=== PATIENT | female | born 1940 | race Caucasian/White ===

== ENCOUNTER 2016-04-02 12:33 | Outpatient (CLI) ==
[2015-12-17 20:20] VITALS: BMI 24.6
[2016-04-02 13:37] LABS: HEMATOCRIT 34.9 % (37.0-47.0); HEMOGLOBIN 11.8 g/dl (12.0-16.0); MEAN CORPUSCULAR HEMOGLOBIN 32.8 pg (27.0-31.0); MEAN CORPUSCULAR HGB CONC 33.8 (31.8-35.4); MEAN CORPUSCULAR VOLUME 96.9 fl (81.0-99.0); RED BLOOD COUNT 3.6 10^6/ul (4.20-5.40); WHITE BLOOD COUNT 3.34 K/ul (4.6-10.2)
[2016-04-02 14:20] LABS: ALBUMIN 3.9 g/dL (3.4-5.0); ALBUMIN/GLOBULIN RATIO 2.05; ANION GAP 15.9; BILIRUBIN,TOTAL 1.06 mg/dL (0.00-1.20); BUN/CREATININE RATIO 12.94; CALCIUM 10.8 mg/dL (8.2-10.2); CREATININE 0.85 mg/dL (0.60-1.30); POTASSIUM 3.9 mmol/L (3.5-5.10); TOTAL PROTEIN 5.8 g/dL (5.8-8.1)
[2016-04-04 09:00] LABS: VITAMIN D25 17.3 ng/mL (30.0-100.0)
[2016-04-04 13:11] LABS: C-REACTIVE PROTEIN < 0.3 mg/L (0.0-4.9)
== END 2016-04-02 12:34 | disposition home or self-care (01) ==
LOC: LAB 12:33
PROVIDERS: ATTEND Internal Medicine Endocrinology, Diabetes & Metabolism
DX: E21.3 Hyperparathyroidism, unspecified (principal); E03.8 Other specified hypothyroidism; E55.9 Vitamin D deficiency, unspecified; M05.79 Rheumatoid arthritis with rheumatoid factor of multiple sites without organ or systems involvement
CPT/HCPCS: 36415; 80053; 82306; 83970; 84443; 85025; 85027; 86140

== ENCOUNTER 2016-05-08 18:16 | Emergency (ER) ==
[2016-05-08 18:27] VITALS: BP 174/78; TEMP 98.5; BMI 21.1
[2016-05-08] MEDS ORDERED: XOPENEX 1.25 MG NEB STA (18:27)
[2016-05-08 18:49] LABS: ABG PH 7.554 (7.35-7.45)
[2016-05-08 18:50] LABS: ABG BASE EXCESS -2 (-2.0-2.0); ABG HCO3 20.3 (22.0-26.0); ABG TCO2 21 (22.0-28.0)
[2016-05-08 18:54] LABS: FLU INTERNAL QC INTERNAL QC VALID; RAPID FLU A NEGATIVE (NEGATIVE); RAPID FLU B NEGATIVE (NEGATIVE)
[2016-05-08 18:57] LABS: BASOPHILS # (AUTO) 0.1 K/uL (0-0.2); BASOPHILS % (AUTO) 1.8 % (0.0-3.0); EOSINOPHILS # (AUTO) 0.9 K/ul (0.0-0.7); EOSINOPHILS % (AUTO) 15.7 % (0.0-7.0); HEMATOCRIT 35.7 % (37.0-47.0); HEMOGLOBIN 12.5 g/dl (12.0-16.0); IMMATURE GRANULOCYTE % (AUTO) 0.2 % (0.0-5.0); LYMPHOCYTES # (AUTO) 3.3 K/uL (0.60-3.4); LYMPHOCYTES % (AUTO) 54.5 (10.0-50.0); MEAN CORPUSCULAR HEMOGLOBIN 33.3 pg (27.0-31.0); MEAN CORPUSCULAR VOLUME 95.2 fl (81.0-99.0); MONOCYTES # (AUTO) 0.6 K/uL (0.4-2.0); MONOCYTES % (AUTO) 9.8 (0-10); NEUTROPHILS # (AUTO) 1.1 K/ul (2.0-6.9); PLATELET COUNT 115 10^3/uL (140-440); RED BLOOD COUNT 3.75 10^6/ul (4.20-5.40)
--- NOTE | 2016-05-08 19:16 | CT ---
EXAM: CT chest without intravenous contrast 05/08/2016. Sagittal and coronal reformatted images ob tained HISTORY: Cough and dyspnea COMPARISON: 10/09/2012 FINDINGS: The heart size appears within normal limits. No pericardial effusion. Right chest port appears well positioned. Emphysematous changes. Spiculated soft tissue density at the right pulmonary apex on image 10 measu res 1.2 x 2.2 cm diameter. This could represent scarring. Neoplasm not excluded. No prior CT imag ing for comparison. Ground-glass infiltrate extends throughout the inferior aspect of both lungs. This may relate to at electasis, pulmonary edema and/or pneumonitis. Small left pleural effusion. Severe atherosclerotic vascular disease. Chronic degenerative disc disease. IMPRESSION: 1. Emphysema. 2. Spiculated soft tissue mass of the right pulmonary apex could represent scarring. Neoplasm is n ot excluded. No prior CT imaging for comparison. Follow-up would be of benefit. 3. Diffuse ground-glass infiltrates throughout the lower aspect of both lungs most compatible with atelectasis, pneumonitis and/or edema. 4. Left pleural effusion. Additional findings as above.
[2016-05-08] MEDS ORDERED: LASIX IVP STA (19:19)
--- NOTE | 2016-05-08 19:23 | ED.PDOC ---
General ED Provider: Dr. SAUNDRA RINCON-ER Chief Complaint: Shortness of Air Stated Complaint: im sob Time Seen by Physician: 18:20 Mode of Arrival: Walk-In Information Source: Patient Exam Limitations: No limitations Primary Care Provider: SAUNDRA RINCON Nursing and Triage Documentation Reviewed and Agree: Yes Respiratory Complaint Exam - Shortness of Air Complaint/Exam Onset/Duration: several days Symptoms Are: Still present Timing: Intermittent Initial Severity: Mild Current Severity: Moderate Character: Reports: Dyspnea at rest, Dyspnea on exertion Aggravating: Reports: None Alleviating: Reports: None Associated Signs and Symptoms: Reports: Cough, Fever, Edema, Labored breathing. Denies: Wheezing, Chest pain with cough, Chest pain, Chills, Diaphoresis, Nasal congestion, Dizziness, Calf pain, Calf swelling, Rapid breathing, Decreased intake Related History: Reports: Similar episode History of Healthcare-Acquired Pneumonia: No Cardiac Risk Factors: Reports: CAD, Hypertension Pseudomonas Risk Factors: Reports: None Tuberculosis Risk Factors: Reports: None Home Oxygen Use: No Recent Stress Test: No Recent Echo/LV Function: No Respiratory Distress: None Stridor Present: No Tracheal Deviation: No Subcutaneous Emphysema: No Accessory Muscle Use: No Retractions: Not Present Diminished Breath Sounds: No Prolonged Expiratory Phase: No Unable to Speak Full Sentences: No Fatigue: Yes Leg Swelling: No Phillip's Sign Present: No Grunting Respirations: No Kussmaul Respirations: No Differential Diagnoses: CHF, Pulmonary Edema, MA, Pneumonia Quality Indicator For Non-Traumatic Chest Pain/Syncope: EKG Performed Review of Systems - Review Of Systems Constitutional: Reports: Fever Eyes: Reports: No symptoms Ears, Nose, Mouth, Throat: Reports: No symptoms Respiratory: Reports: Cough, Short of air Cardiac: Reports: No symptoms GI: Reports: No symptoms : Reports: No symptoms Musculoskeletal: Reports: No symptoms Skin: Reports: No symptoms Neurological: Reports: No symptoms Endocrine: Reports: No symptoms Hematologic/Lymphatic: Reports: No symptoms All Other Systems: Reviewed and Negative Past Medical History - Past Medical History Endocrine: Reports: Hypothyroid, Dyslipidemia Cardiovascular: Reports: Hypertension Respiratory: Reports: None Hematological: Reports: None Gastrointestinal: Reports: None Genitourinary: Reports: None Neuro/Psych: Reports: None Musculoskeletal: Reports: None Cancer: Reports: None Last Menstrual Period: none - Surgical History General Surgical History: Reports: Gastric Bypass - Family History Family History: Reports: Unknown - Social History Smoking Status: Never smoker Hx Substance Use: No Alcohol Screening: Occasionally Lives: With family Physical Exam - Physical Exam Appearance: Well-appearing, No pain distress, Well-nourished Eyes: ADI, EOMI, Conjunctiva clear ENT: Ears normal, Nose normal, Oropharynx normal Neck: Supple Respiratory: Airway patent, Breath sounds equal, Crackles Cardiovascular: RRR, Pulses normal, No rub, No murmur GI/: Soft, Nontender, No masses, Bowel sounds normal, No Organomegaly Musculoskeletal: Normal strength, ROM intact, No edema, No calf tenderness Skin: Warm, Dry, Normal color Neurological: Sensation intact, Motor intact, Reflexes intact, Cranial nerves intact, Alert, Oriented Psychiatric: Affect appropriate, Mood appropriate Interpretation - Radiology Interpretation Radiology Interpretation By: Radiologist Radiology Results: Positive Exam Interpreted: CT Scan ("pulmonary edema and pleural effusion") - EKG Interpretation Time of EKG #1: 19:23 Rate: Normal Rhythm: Other Ectopy: None [place]: NL ST Segment: Normal Interpretation: nsr Critical Care Note - Critical Care Note Total Time (mins): 0 Course - Course Hematology/Chemistry: 05/08/16 18:45 05/08/16 18:45 Orders, Labs, Meds: Lab Review 05/08/16 05/08/16 05/08/16 18:25 18:30 18:45 WBC 6.00 RBC 3.75 L Hgb 12.5 Hct 35.7 L MCV 95.2 MCH 33.3 H MCHC 35.0 RDW Coeff of [place] 14.1 Plt Count 115 L Immature Gran % (Auto) 0.2 Neut % (Auto) 18.0 Lymph % (Auto) 54.5 H Foard % (Auto) 9.8 Eos % (Auto) 15.7 H Baso % (Auto) 1.8 Immature Gran # (Auto) 0.0 Neut # 1.1 L Lymph # 3.3 Foard # 0.6 Eos # 0.9 H Baso # 0.1 D-Dimer 0.91 Puncture Site Rb O2 Saturation 93.0 L ABG pH 7.554 H* ABG pCO2 23.0 L ABG pO2 57.0 L* ABG HCO3 20.3 L ABG Total CO2 21 L ABG Base Excess -2 Omid Test + FiO2 % 21.0 Sodium 143 Potassium 3.5 Chloride 110 H Carbon Dioxide 23 Anion Gap 13.5 BUN 14 Creatinine 0.97 Estimated GFR (MDRD) 56.00 BUN/Creatinine Ratio 14.43 Glucose 83 Calcium 11.4 H Total Bilirubin 0.69 AST 68 H ALT 39 Alkaline Phosphatase 57 Total Creatine Kinase 41 Troponin I < 0.0100 B-Natriuretic Peptide 304 H Total Protein 5.6 L Albumin 3.6 Globulin 2.0 Albumin/Globulin Ratio 1.80 Influenza A (Rapid) Negative Influenza B (Rapid) Negative Orders Category Date Time Status ABG DRAW REQUEST Stat CARDIO 05/08/16 18:26 Completed EKG-(ED ONLY) Stat CARDIO 05/08/16 18:26 Completed NEBULIZER TREATMENT Stat CARDIO 05/08/16 18:27 Completed ABG Stat LAB 05/08/16 18:25 Completed BLOOD CULTURE Stat LAB 05/08/16 18:45 Received BNP [B-TYPE NATRIURETIC PEPTIDE] Stat LAB 05/08/16 18:45 Completed CBC W/ AUTO DIFF Stat LAB 05/08/16 18:45 Completed COMPREHENSIVE METABOLIC PANEL Stat LAB 05/08/16 18:45 Completed CREATINE KINASE Stat LAB 05/08/16 18:45 Completed D-DIMER Stat LAB 05/08/16 18:45 Completed RAPID FLU A/B Stat LAB 05/08/16 18:30 Completed TROPONIN I Stat LAB 05/08/16 18:45 Completed Ceftriaxone Sodium [Rocephin] 1 gm MEDS 05/08/16 19:31 Active 0.9 % Sodium Chloride [Sodium Chloride] 100 ml IV ONCE Furosemide [Lasix] MEDS 05/08/16 19:19 Discontinued 20 mg IVP ONCE STA Levalbuterol HCl [Xopenex 1.25 mg] MEDS 05/08/16 18:27 Discontinued 1 vial NEB ONCE STA CT CHEST W/O CONTRAST Stat RADS 05/08/16 18:27 Completed Medications Generic Name Dose Route Start Last Admin Trade Name Freq PRN Reason Stop Dose Admin Ceftriaxone Sodium 1 gm/ 100 mls @ 100 mls/hr 05/08/16 19:31 Sodium Chloride IV 05/08/16 20:30 ONCE STA Discontinued Medications Generic Name Dose Route Start Last Admin Trade Name Freq PRN Reason Stop Dose Admin Furosemide 20 mg 05/08/16 19:19 Lasix IVP 05/08/16 19:20 ONCE STA Levalbuterol HCl 1 vial 05/08/16 18:27 05/08/16 18:58 Xopenex 1.25 Mg NEB 05/08/16 18:28 1 vial ONCE STA Administration Vital Signs: Temp Pulse Resp BP Pulse Ox 05/08/16 18:17 98.5 F 85 20 174/78 H 91 L Departure - Departure Time of Disposition: 19:33 Disposition: TSF SHORT-TRM HOSP Discharge Problem: Pulmonary edema Qualifiers: Chronicity: acute Qualifier Code: (J81.0) Acute pulmonary edema Pneumonia Qualifiers: Pneumonia type: due to unspecified organism Laterality: unspecified laterality Lung location: unspecified part of lung Qualifier Code: (J18.9) Pneumonia, unspecified organism Instructions: Pulmonary Edema (ED) Condition: Stable Pt referred to PMD for follow-up: Yes Allergies/Adverse Reactions: Allergies No Known Allergies Allergy (Verified 05/08/16 18:26) Home Medications: Ambulatory Orders Aspirin [Aspirin EC] 81 mg PO DAILY 03/09/15 Atorvastatin Calcium 10 mg PO DAILY 03/09/15 Clonidine HCl [Catapres] 0.1 mg PO BID 03/09/15 Losartan Potassium [Cozaar] 50 mg PO BID 03/09/15 Methotrexate Sodium [Methotrexate] 2.5 mg PO DIRECTED 03/09/15 Nitroglycerin [Nitrostat] 1 tab SL DIRECTED PRN 03/09/15 Sucralfate Susp [Carafate] 1 gm PO QID 03/09/15 Alendronate Sodium 70 mg PO WEEKLY 12/17/15 Ergocalciferol (Vitamin D2) [Vitamin D2] 400 unit PO WEEKLY 12/17/15 Metoprolol Tartrate [Lopressor] 25 mg PO BID 12/17/15 Nystatin [Nystop Powder] 1 applic TP DAILY 12/17/15 Pantoprazole Sodium [Protonix] 40 mg PO DAILY 12/17/15 Tocilizumab [Actemra] 200 mg IV DIRECTED 12/17/15 Disposition Discussed With: Patient, Family
[2016-05-08 19:28] LABS: ALANINE AMINOTRANSFERASE 39 U/L (12-78); ALBUMIN 3.6 g/dL (3.4-5.0); ALKALINE PHOSPHATASE 57 U/L (53-141); ANION GAP 13.5; ASPARTATE AMINO TRANSFERASE 68 U/L (15-37); BILIRUBIN,TOTAL 0.69 mg/dL (0.00-1.20); BLOOD UREA NITROGEN 14 mg/dL (7-18); BUN/CREATININE RATIO 14.43; CALCIUM 11.4 mg/dL (8.2-10.2); CARBON DIOXIDE 23 mmol/L (23-31); CHLORIDE 110 mmol/L (98-107); CREATINE KINASE 41 U/L; CREATININE 0.97 mg/dL (0.60-1.30); GLUCOSE 83 mg/dL (82-115); POTASSIUM 3.5 mmol/L (3.5-5.10); SODIUM 143 mmol/L (136-145); TOTAL PROTEIN 5.6 g/dL (5.8-8.1)
[2016-05-08] MEDS ORDERED: ROCEPHIN 1 GM in SODIUM CHLORIDE 100 ML IV STA (19:31)
[2016-05-08] MEDS ORDERED: ROCEPHIN ONE (19:56)
== END 2016-05-08 20:20 | disposition short-term general hospital (02) ==
LOC: ED 18:16
DX: J81.0 Acute pulmonary edema (principal); J18.9 Pneumonia, unspecified organism; I10 Essential (primary) hypertension; I25.10 Atherosclerotic heart disease of native coronary artery without angina pectoris; E03.9 Hypothyroidism, unspecified; E78.5 Hyperlipidemia, unspecified; Z79.899 Other long term (current) drug therapy; Z98.84 Bariatric surgery status
CPT/HCPCS: 36415; 80053; 82550; 82803; 83880; 84484; 85025; 85379; 87040; 87804; 93005; 93010; 94640; 96365; 96375; 99285

== ENCOUNTER 2016-05-08 20:24 | Outpatient (CLI) ==
[2016-05-08 18:27] VITALS: BMI 21.1
== END 2016-05-08 20:25 ==
LOC: AMBL 20:24
PROVIDERS: ATTEND Family Medicine
DX: J81.1 Chronic pulmonary edema (principal); R06.9 Unspecified abnormalities of breathing

== ENCOUNTER 2016-06-08 11:43 | Outpatient (CLI) ==
[2016-06-08 12:19] LABS: EOSINOPHILS # (AUTO) 0.2 K/ul (0.0-0.7); EOSINOPHILS % (AUTO) 7.9 % (0.0-7.0); HEMATOCRIT 29.5 % (37.0-47.0); HEMOGLOBIN 10.1 g/dl (12.0-16.0); LYMPHOCYTES # (AUTO) 1.9 K/uL (0.60-3.4); LYMPHOCYTES % (AUTO) 62.8 (10.0-50.0); MEAN CORPUSCULAR HEMOGLOBIN 33.8 pg (27.0-31.0); MEAN CORPUSCULAR HGB CONC 34.2 (31.8-35.4); MEAN CORPUSCULAR VOLUME 98.7 fl (81.0-99.0); MONOCYTES # (AUTO) 0.2 K/uL (0.4-2.0); MONOCYTES % (AUTO) 6.6 (0-10); NEUTROPHILS # (AUTO) 0.7 K/ul (2.0-6.9); NEUTROPHILS % (AUTO) 21.7; PLATELET COUNT 78 10^3/uL (140-440); RED BLOOD COUNT 2.99 10^6/ul (4.20-5.40); WHITE BLOOD COUNT 3.04 K/ul (4.6-10.2)
[2016-06-08 12:35] LABS: ALBUMIN 3.5 g/dL (3.4-5.0); ALBUMIN/GLOBULIN RATIO 1.52; ANION GAP 10.8; BILIRUBIN,TOTAL 0.81 mg/dL (0.00-1.20); BUN/CREATININE RATIO 13.33; CALCIUM 10.8 mg/dL (8.2-10.2); CREATININE 0.9 mg/dL (0.60-1.30); POTASSIUM 3.8 mmol/L (3.5-5.10); TOTAL PROTEIN 5.8 g/dL (5.8-8.1)
== END 2016-06-08 11:44 | disposition home or self-care (01) ==
LOC: LAB 11:43
PROVIDERS: ATTEND Internal Medicine Rheumatology
DX: M05.79 Rheumatoid arthritis with rheumatoid factor of multiple sites without organ or systems involvement (principal)
CPT/HCPCS: 36415; 80053; 85025; 86140

== ENCOUNTER 2016-08-29 11:48 | Outpatient (CLI) ==
[2016-08-29 12:11] LABS: HEMATOCRIT 32.8 % (37.0-47.0); HEMOGLOBIN 11.2 g/dl (12.0-16.0); MEAN CORPUSCULAR HEMOGLOBIN 33.1 pg (27.0-31.0); MEAN CORPUSCULAR HGB CONC 34.1 (31.8-35.4); RED BLOOD COUNT 3.38 10^6/ul (4.20-5.40); WHITE BLOOD COUNT 2.85 K/ul (4.6-10.2)
[2016-08-29 12:30] LABS: ALBUMIN 3.4 g/dL (3.4-5.0); CREATININE 0.83 mg/dL (0.60-1.30)
== END 2016-08-29 11:49 | disposition home or self-care (01) ==
LOC: LAB 11:48
PROVIDERS: ATTEND Internal Medicine Rheumatology
DX: M05.79 Rheumatoid arthritis with rheumatoid factor of multiple sites without organ or systems involvement (principal)
CPT/HCPCS: 36415; 82040; 82565; 84460; 85027; 86140

== ENCOUNTER 2016-09-30 11:55 | Outpatient (CLI) ==
[2016-09-30 12:59] LABS: BASOPHILS # (AUTO) 0.1 K/uL (0-0.2); EOSINOPHILS # (AUTO) 0.2 K/ul (0.0-0.7); EOSINOPHILS % (AUTO) 3.7 % (0.0-7.0); HEMATOCRIT 34.3 % (37.0-47.0); HEMOGLOBIN 11.6 g/dl (12.0-16.0); IMMATURE GRANULOCYTE % (AUTO) 0.2 % (0.0-5.0); LYMPHOCYTES # (AUTO) 2.1 K/uL (0.60-3.4); MEAN CORPUSCULAR HEMOGLOBIN 33.2 pg (27.0-31.0); MEAN CORPUSCULAR HGB CONC 33.8 (31.8-35.4); MEAN CORPUSCULAR VOLUME 98.3 fl (81.0-99.0); MONOCYTES # (AUTO) 0.3 K/uL (0.4-2.0); MONOCYTES % (AUTO) 6.3 (0-10); NEUTROPHILS # (AUTO) 1.6 K/ul (2.0-6.9); NEUTROPHILS % (AUTO) 37.8; PLATELET COUNT 90 10^3/uL (140-440); RED BLOOD COUNT 3.49 10^6/ul (4.20-5.40)
[2016-09-30 13:46] LABS: ALBUMIN 3.7 g/dL (3.4-5.0); CALCIUM 11.2 mg/dL (8.2-10.2); MAGNESIUM 1.7 mg/dL (1.7-2.2); POTASSIUM 4.3 mmol/L (3.5-5.10); TOTAL PROTEIN 6.3 g/dL (5.8-8.1)
[2016-09-30 13:47] LABS: ALBUMIN/GLOBULIN RATIO 1.42; ANION GAP 12.3; BILIRUBIN,TOTAL 0.47 mg/dL (0.00-1.20); BUN/CREATININE RATIO 17.07; CREATININE 0.82 mg/dL (0.60-1.30); PHOSPHORUS 1.9 mg/dL (2.8-4.1)
[2016-10-01 19:46] LABS: FREE KAPPA LIGHT CHAINS 17.8 mg/L (3.3-19.4); FREE LAMBDA LIGHT CHAINS 13.9 mg/L (5.7-26.3)
[2016-10-02 11:06] LABS: FREE KAPPA/LAMBDA RATI 1.28 (0.26-1.65)
== END 2016-09-30 11:56 | disposition home or self-care (01) ==
LOC: LAB 11:55
PROVIDERS: ATTEND Internal Medicine Rheumatology
DX: M05.79 Rheumatoid arthritis with rheumatoid factor of multiple sites without organ or systems involvement (principal); R79.9 Abnormal finding of blood chemistry, unspecified; R09.89 Other specified symptoms and signs involving the circulatory and respiratory systems; R53.83 Other fatigue; E83.52 Hypercalcemia; R49.8 Other voice and resonance disorders
CPT/HCPCS: 36415; 80053; 82306; 82652; 83735; 83970; 84100; 84439; 84443; 84446; 85025; 86320

== ENCOUNTER 2016-11-03 09:06 | Outpatient (CLI) ==
[2016-11-03 10:20] LABS: ALBUMIN 3.6 g/dL (3.4-5.0); ALBUMIN/GLOBULIN RATIO 1.5; ANION GAP 12.2; BILIRUBIN,TOTAL 0.68 mg/dL (0.00-1.20); BUN/CREATININE RATIO 20.45; CALCIUM 10.9 mg/dL (8.2-10.2); CREATININE 0.88 mg/dL (0.60-1.30); POTASSIUM 4.2 mmol/L (3.5-5.10)
[2016-11-04 08:14] LABS: REF CREATININE 0.77 mg/dL (0.57-1.00)
== END 2016-11-03 09:07 | disposition home or self-care (01) ==
LOC: LAB 09:06
PROVIDERS: ATTEND Internal Medicine Endocrinology, Diabetes & Metabolism
DX: R09.89 Other specified symptoms and signs involving the circulatory and respiratory systems (principal); R53.83 Other fatigue; R49.8 Other voice and resonance disorders; E83.52 Hypercalcemia
CPT/HCPCS: 36415; 80053; 81050; 82340; 82575

== ENCOUNTER 2016-11-04 11:58 | Outpatient (CLI) | END 2016-11-04 11:59 | disposition home or self-care (01) | LOC: LAB 11:58 | PROVIDERS: ATTEND Internal Medicine Endocrinology, Diabetes & Metabolism | DX: R09.89 Other specified symptoms and signs involving the circulatory and respiratory systems (principal); R53.83 Other fatigue; R49.8 Other voice and resonance disorders; E83.52 Hypercalcemia ==

== ENCOUNTER 2017-01-31 12:43 | Outpatient (CLI) ==
--- NOTE | 2017-01-31 13:58 | DEXA ---
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 COMPARISON: Density evaluation 01/12/2012 TECHNIQUE: Digital images of the thoracolumbar spine, forearm and hips were provided and calculation of bone density was obtained. FINDINGS: Digital images demonstrate no compression deformities of the thoracolumbar spine. DEXA scan of the lumbar spine is of good quality. The total BMD equals 0.882 grams per square centimeter. T-score is - 2.5 and Z-score of - 0.3 DEXA of the hips was performed and of good quality. Total bone marrow density of 0.701 grams per square centimeter. T score is - 2.4 and Z-score of 0.4. Bilateral femoral neck to T-scores are - 2.8 and - 2.9 Right forearm was performed and of good quality. Total bone density of 0.319 grams per centimeter squared. The radius totally T-score is - 5.5 with a Z-score of - 3.2 IMPRESSION: Bone density of the hips, forearm and lumbar spine demonstrate bilateral femoral neck os teoporosis and osteopenia of the lumbar spine and osteoporosis of the right forearm by WHO criteria. FRAX calculation tool demonstrates 10-year major osteoporotic fracture risk of 23.8% and hip fracture risk of 10.2% T score greater than -1 is normal T score -1 to -2.5 is osteopenia T score less than - 2.5 is osteoporosis
== END 2017-01-31 12:44 | disposition home or self-care (01) ==
LOC: RAD 12:43
PROVIDERS: ATTEND Internal Medicine Endocrinology, Diabetes & Metabolism
DX: M81.8 Other osteoporosis without current pathological fracture (principal); E21.3 Hyperparathyroidism, unspecified; E83.52 Hypercalcemia; R53.83 Other fatigue; R09.89 Other specified symptoms and signs involving the circulatory and respiratory systems; R49.8 Other voice and resonance disorders

== ENCOUNTER 2017-04-24 11:02 | Outpatient (CLI) | END 2017-04-24 11:03 | disposition home or self-care (01) | LOC: LAB 11:02 | PROVIDERS: ATTEND Internal Medicine Endocrinology, Diabetes & Metabolism | DX: R09.89 Other specified symptoms and signs involving the circulatory and respiratory systems (principal); E83.52 Hypercalcemia; R53.83 Other fatigue; R49.8 Other voice and resonance disorders | CPT/HCPCS: 36415; 80053; 81050; 82306; 83970 ==

== ENCOUNTER 2017-05-19 11:01 | Outpatient (CLI) ==
[2017-05-19] MEDS ORDERED: HEPARIN 500 UNIT/5 ML (PORT ACCESS TRAY ONLY) IVF ONE (14:50)
== END 2017-05-19 11:02 | disposition home or self-care (01) ==
LOC: LAB 11:01
PROVIDERS: ATTEND Internal Medicine Endocrinology, Diabetes & Metabolism
DX: R09.89 Other specified symptoms and signs involving the circulatory and respiratory systems (principal); R53.83 Other fatigue; R49.8 Other voice and resonance disorders; E83.52 Hypercalcemia
CPT/HCPCS: 36415; 36591; 82652; 84439; 84443

== ENCOUNTER 2017-10-09 12:41 | Outpatient (CLI) | END 2017-10-09 12:42 | disposition home or self-care (01) | LOC: LAB 12:41 | PROVIDERS: ATTEND Internal Medicine Endocrinology, Diabetes & Metabolism | DX: R09.89 Other specified symptoms and signs involving the circulatory and respiratory systems (principal); R53.83 Other fatigue; E83.52 Hypercalcemia; R49.8 Other voice and resonance disorders | CPT/HCPCS: 36591; 80053; 82306; 84443 ==

== ENCOUNTER 2017-10-24 07:56 | Outpatient (CLI) | END 2017-10-24 07:57 | disposition home or self-care (01) | LOC: LAB 07:56 | PROVIDERS: ATTEND Internal Medicine Endocrinology, Diabetes & Metabolism | DX: R09.89 Other specified symptoms and signs involving the circulatory and respiratory systems (principal); E83.52 Hypercalcemia; R49.8 Other voice and resonance disorders; R53.83 Other fatigue | CPT/HCPCS: 36591; 80053; 82306; 82607; 83970; 84443 ==